=== PATIENT | male | born 1935 | race Two or more races ===

== ENCOUNTER 2018-05-20 08:15 | Emergency (ER) | payer OTHER ==
[~2018-05-20] VITALS: Ht 167.6 cm; Wt 56.2 kg
[2018-05-20] MEDS ORDERED: GABAPENTIN400 MG PO (08:30)
[2018-05-20] MEDS ORDERED: FORTAMET500 MG PO (08:31)
[2018-05-20] MEDS ORDERED: COZAAR50 MG PO (08:31)
[2018-05-20] MEDS ORDERED: CILOSTAZOL100 MG PO (08:31)
[2018-05-20] MEDS ORDERED: SIMVASTATIN40 MG PO (08:32)
== END 2018-05-20 12:22 | disposition home or self-care (01) ==
LOC: ER 08:15
DX: R11.2 Nausea with vomiting, unspecified (principal)

== ENCOUNTER 2018-05-30 23:14 | Emergency (ER) | payer OTHER ==
[~2018-05-30] VITALS: Ht 165.1 cm; Wt 55.8 kg
[~2018-05-30 23:14] MED LIST: CILOSTAZOL100 MG PO; COZAAR50 MG PO; FORTAMET500 MG PO; GABAPENTIN400 MG PO; SIMVASTATIN40 MG PO
== END 2018-05-31 12:25 | disposition home or self-care (01) ==
LOC: ER 23:14
DX: K06.8 Other specified disorders of gingiva and edentulous alveolar ridge (principal); T88.8XXA Other specified complications of surgical and medical care, not elsewhere classified, initial encounter; Y83.8 Other surgical procedures as the cause of abnormal reaction of the patient, or of later complication, without mention of misadventure at the time of the procedure; Y92.89 Other specified places as the place of occurrence of the external cause

== ENCOUNTER 2018-10-28 09:15 | Emergency (ER) | payer OTHER ==
[~2018-10-28] VITALS: Ht 167.6 cm; Wt 59.9 kg
[2018-10-28] MEDS ORDERED: GLIMEPIRIDE1 MG PO (10:00)
[2018-10-28] MEDS ORDERED: LAMISIL250 MG PO (10:01)
[2018-10-28] MEDS ORDERED: AMOX-CLAV 500-1 EACH PO (10:01)
[2018-10-28] MEDS ORDERED: TRIDERM28.4 GM ID (10:03)
== END 2018-10-28 10:53 | disposition home or self-care (01) ==
LOC: ER 09:15
DX: L89.622 Pressure ulcer of left heel, stage 2 (principal); E11.621 Type 2 diabetes mellitus with foot ulcer

== ENCOUNTER 2018-11-12 08:20 | Outpatient (CLI) | payer OTHER ==
[~2018-11-12 08:20] MED LIST changes: +AMOX-CLAV 500-1 EACH PO; +GLIMEPIRIDE1 MG PO; +LAMISIL250 MG PO; +TRIDERM28.4 GM ID
== END 2018-11-12 09:00 | disposition home or self-care (01) ==
LOC: NUCLEAR 08:20
DX: E11.621 Type 2 diabetes mellitus with foot ulcer (principal); I87.2 Venous insufficiency (chronic) (peripheral)

== ENCOUNTER 2018-11-14 08:04 | Outpatient (CLI) | payer OTHER | END 2018-11-14 11:10 | disposition home or self-care (01) | LOC: NUCLEAR 08:04 | DX: E11.621 Type 2 diabetes mellitus with foot ulcer (principal); I73.9 Peripheral vascular disease, unspecified ==

== ENCOUNTER 2019-11-01 17:56 | Emergency (ER) | payer OTHER ==
[~2019-11-01] VITALS: Ht 165.1 cm; Wt 60.8 kg
== END 2019-11-01 22:03 | disposition home or self-care (01) ==
LOC: ER 17:56
DX: R42 Dizziness and giddiness (principal)